=== PATIENT | female | born 1980 | race Caucasian/White ===

== ENCOUNTER 2018-04-14 14:57 | Emergency (ER) | payer MEDICAID ==
--- NOTE | 2018-04-14 15:29 | EDM.PDOC ---
ED HPI GENERAL MEDICAL PROBLEM - General Chief Complaint: Skin Complaint Stated Complaint: HIVES Time Seen by Provider: 04/14/18 15:28 Source of Information: Reports: Patient - History of Present Illness INITIAL COMMENTS - FREE TEXT/NARRATIVE: Carolyn is a 37 year old female who presents to the ED with c/o hives all over her body. She reports she first noticed hives on her foot. She reports she has had chronic hives for about the past year and a half. She does have history of hep C and RA and feels she gets hives prior to a RA flare. She reports she was seen in the [place] ED and given a steroid shot, benadryl, and pepcid. She reports typically she gets oral steroids, but she feels they did not even listen to her at the ED. She does report her itching has improved with the steroid shot. Denies any other complaints. Onset Date: 04/13/18 Duration: Getting Worse Location: Reports: Generalized Severity: Severe Improves with: Reports: None Associated Symptoms: Reports: No Other Symptoms Posterior Knee Pain Score (Numeric/FACES): 4 - Related Data Allergies Allergy/AdvReac Type Severity Reaction Status Date / Time Penicillins Allergy Hives Verified 04/14/18 15:12 Home Meds: Home Meds Cetirizine [ZyrTEC] 10 mg PO DAILY #90 tab 04/14/18 [Rx] Ibuprofen 600 mg PO Q4H PRN 04/14/18 [History] hydrOXYzine HCl [Atarax] 25 mg PO Q6H PRN #30 tab 04/14/18 [Rx] methylPREDNISolone [Medrol] 4 mg PO DAILY #1 dospk 04/14/18 [Rx] Past Medical History HEENT History: Reports: Allergic Rhinitis 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: , Other (See Below) Other DISASTER RECOVERY CONSULTANT History: HYSTERECTOMY Musculoskeletal History: Reports: RA Dermatologic History: Reports: Other (See Below) Other Dermatologic History: CHRONIC ACUTE HIVES - Infectious Disease History Infectious Disease History: Reports: Hepatitis C - Past Surgical History HEENT Surgical History: Reports: Naso-Sinus Surgery Other HEENT Surgeries/Procedures: DEVIATED SEPTUM SURGERY Social & Family History - Family History Family Medical History: Noncontributory - Tobacco Use Smoking Status *Q: Current Every Day Smoker Years of Tobacco use: 15 Packs/Tins Daily: 0.1 - Caffeine Use Caffeine Use: Reports: Coffee, Soda - Recreational Drug Use Recreational Drug Use: No ED ROS GENERAL - Review of Systems Review Of Systems: ROS reveals no pertinent complaints other than HPI. ED EXAM, SKIN/RASH Exam: See Below Exam Limited By: No Limitations General Appearance: Alert, WD/WN, No Apparent Distress Neck: Normal Inspection, Supple, Non-Tender, Full Range of Motion Respiratory/Chest: No Respiratory Distress, Lungs Clear, Normal Breath Sounds, No Accessory Muscle Use, Chest Non-Tender Cardiovascular: Normal Peripheral Pulses, Regular Rate, Rhythm, No Edema, No Gallop, No JVD, No Murmur, No Rub Skin: Warm, Dry, Intact, Rash Location, Skin: Generalized Characteristics: Confluent, Urticarial Course - Vital Signs Last Recorded V/S: Last Vital Signs Temp 98.1 F 04/14/18 15:08 Pulse 115 H 04/14/18 15:08 Resp 20 04/14/18 15:08 BP 100/79 04/14/18 15:08 Pulse Ox 100 04/14/18 15:08 Departure - Departure Time of Disposition: 15:44 Disposition: Home, Self-Care 01 Condition: Good Clinical Impression: Full body hives, Rheumatoid arthritis flare - Discharge Information *PRESCRIPTION DRUG MONITORING PROGRAM REVIEWED*: Not Applicable *COPY OF PRESCRIPTION DRUG MONITORING REPORT IN PATIENT RAFIQ: Not Applicable Prescriptions: Cetirizine [ZyrTEC] 10 mg PO DAILY #90 tab hydrOXYzine HCl [Atarax] 25 mg PO Q6H PRN #30 tab PRN Reason: Itching methylPREDNISolone [Medrol] 4 mg PO DAILY #1 dospk Instructions: Hives, [id number] Referrals: Katie Sullivan INSTRUCTOR FLYING [Primary Care Provider] - Forms: ED Department Discharge Additional Instructions: Zyrtec daily Hydroxyzine every 6 hours as needed for itching Medrol dose pack as directed Follow up if symptoms worsen or do not improve
== END 2018-04-14 15:56 | disposition home or self-care (01) ==
LOC: CC.ED 14:57
DX: L50.9 Urticaria, unspecified (principal); M06.9 Rheumatoid arthritis, unspecified; F17.210 Nicotine dependence, cigarettes, uncomplicated; Z79.899 Other long term (current) drug therapy; Z88.0 Allergy status to penicillin
CPT/HCPCS: 99282